=== PATIENT | male | born 1935 | race Caucasian/White ===

== ENCOUNTER 2016-05-25 10:23 | Emergency (ER) | payer OTHER, MEDICARE ==
[~2016-05-25 10:23] MED LIST: ALBUTEROL0.83 MG/ML; ALBUTEROL17 GM; AMITRIPTYLINE H50 MG; ARICEPT5 MG; ASPIRIN81 M1 PO; ATROVENT0.2 MG/ML; BENICAR40 MG; CARDURA4 MG; CITALOPRAM HBR40 M1 PO; DIABETA5 MG; DOXAZOSIN MESYLA2 MG; DOXAZOSIN MESYLA4 M2 PO; FLEXERIL10 MG PO; FOSINOPRIL SODI40 MG; GLUCOPHAGE1000 M1 PO; GLUCOPHAGE1000 MG; HUMULIN N100 U/ML; HUMULIN R100 U/ML; LEVEMIR FL100 UNIT/2 SC; LOZOL1.25 MG; MEMANTINE HCL10 MG PO; MULTIVITAMINS1 EAC6 PO; NEURONTIN300 MG; NOVOLOG100 UNIT/2 SC; RISPERDAL0.5 M2 PO; RISPERDAL1 M2 PO; RISPERIDONE1 M1 PO; VICODIN 5/500 T1 TAB PO; ZOCOR40 M1 PO; ZOCOR40 MG; [UNRECOGNIZED DRUG - CODE]; [UNRECOGNIZED DRUG - OTHER]
[2016-05-25] MEDS ORDERED: VENTOLIN HFA18 G2 INH (10:44)
[2016-05-25] MEDS ORDERED: SYMBICORT 80-41 PUFF INH (10:45)
[2016-05-25] MEDS ORDERED: AUGMENTIN 875-1 EAC2 PO (10:45)
[2016-05-25] MEDS ORDERED: GLUCOSE4 GM PO (10:46)
[2016-05-25] MEDS ORDERED: NOVOLOG FL100 UNIT/2 SC ×3 (10:47→10:48)
[2016-05-25] MEDS ORDERED: GUAIFENESIN400 M1 PO (10:47)
[2016-05-25] MEDS ORDERED: KETOCONAZOLE120 M2 TP (10:50)
[2016-05-25] MEDS ORDERED: KETOCONAZOLE15 GM TP (10:50)
[2016-05-25] MEDS ORDERED: COZAAR50 M1 PO (10:51)
[2016-05-25] MEDS ORDERED: METOPROLOL TART25 M1 PO (10:51)
[2016-05-25] MEDS ORDERED: CLARITIN10 M6 PO (10:51)
[2016-05-25] MEDS ORDERED: PREDNISONE5 M2 PO (10:56)
[2016-05-25] MEDS ORDERED: SEROQUEL25 M2 PO ×2 (10:58)
[2016-05-25 11:30] LABS: BASO % 0.5 % (0-2); EOSINOPHIL ABSOLUTE COUNT 0.2 tho/cmm (0.0-0.7); HCT-HEMATOCRIT 42.1 % (36.0-53.5); HGB-HEMOGLOBIN 14.5 gm/dl (13.5-17.0); IMMATURE GRANULOCYTES ABSOLUTE 0.02 tho/cmm (0-0.03); IMMATURE GRANULOCYTES PERCENT 0.2 % (0-0.3); LYMPH % 30.8 % (20-45); LYMPH ABSOLUTE COUNT 2.5 tho/cmm (0.8-4.5); MCH (MEAN CORPUSCULAR HGB) 30.2 pg (28.0-32.0); MCHC MEAN CORPUSCULAR HGB CONC 34.4 % (32.0-36.0); MCV (MEAN CELL VOLUME) 87.7 fl (82.0-96.0); MEAN PLATELET VOLUME 10.8 cmc (9.4-12.4); MONO % 8.3 % (0-12); MONOCYTE ABSOLUTE COUNT 0.7 tho/cmm (0.0-1.2); NEUTROPHIL ABSOLUTE COUNT 4.6 tho/cmm (1.6-8.0); NEUTROPHIL-AUTOMATED 4.6 tho/cmm (1.6-8.0); NEUTROPHILS % 57.2 % (40-80); PLATELET COUNT 201 tho/cmm (150-450); WHITE BLOOD COUNT 8.1 tho/cmm (4.0-10.0)
[2016-05-25 11:52] LABS: ALBUMIN 3.6 g/dl (3.5-5.0); ALKALINE PHOSPHATASE 52 U/L (33-138); ALT/SGPT 23 U/L (12-78); ANION GAP 15 mmol/L (0-20); AST/SGOT 19 U/L (10-40); BILIRUBIN,TOTAL 1.3 mg/dl (0.0-1.5); BLOOD UREA NITROGEN 13 mg/dl (6-24); CALCIUM 8.2 mg/dl (8.5-10.5); CARBON DIOXIDE-VENOUS 25 mmol/L (22-32); CHLORIDE 99 mmol/l (96-110); CREATININE 1.13 mg/dl (0.60-1.30); GLUCOSE 242 mg/dL (70-110); POTASSIUM 4.3 mmol/L (3.7-5.1); SODIUM 135 mmol/L (135-145); eGFR VALUE FOR BLACK 71 mL/Min
[2016-05-25 11:56] LABS: TSH-THYROID STIMULATING HORM. 2.01 uIU/ml (0.40-3.80)
[2016-05-25 12:10] LABS: PROCALCITONIN <0.05 ng/ml (0.05-0.09)
[2016-05-25 14:17] LABS: URINE LEUKOCYTE ESTERASE POSITIVE (NEG); URINE PROTEIN MODERATE (NEG); URINE SPECIFIC GRAVITY 1.025 (1.003-1.030)
[2016-05-25 14:19] LABS: URINE APPEARANCE CLEAR; URINE BILIRUBIN NEGATIVE (NEG); URINE BLOOD SMALL (NEG); URINE COLOR DARK YELLOW; URINE GLUCOSE (UA) MODERATE (NEG); URINE KETONE SMALL (NEG); URINE NITRITE NEGATIVE (NEG)
[2016-05-25 14:25] LABS: URINE AMORPHOUS 1+
== END 2016-05-25 17:00 ==
LOC: EDMED 10:23
PROVIDERS: Physician Assistant
DX: E86.0 Dehydration (principal); I95.9 Hypotension, unspecified; E11.9 Type 2 diabetes mellitus without complications; I10 Essential (primary) hypertension; J44.9 Chronic obstructive pulmonary disease, unspecified; Z79.4 Long term (current) use of insulin
CPT/HCPCS: J7030